=== PATIENT | female | born 1975 | race Caucasian/White ===

== ENCOUNTER 2016-10-31 17:16 | Inpatient (IN) | payer BC, OTHER ==
[~2016-10-31] VITALS: Ht 157.5 cm; Wt 70.5 kg
--- NOTE | ~2016-10-31 | CON ---
PATIENT'S NAME: JATINDER ELLER [facility] AGE: 41 Y [address] ROOM: [place] [address] LOCATION: GICU ADMIT DATE: 10/31/2016 Consultation DISCHARGE DATE: 11/01/2016 FAMILY PHYSICIAN: , Unknown ATTENDING PHYSICIAN: Edilberto Hong DATE OF CONSULTATION: 10/31/2016 REASON FOR CONSULTATION: Medical management while in intensive care unit. HISTORY OF PRESENT ILLNESS: Ms. Eller is a 41-year-old female, who was not heard from since , the week before her presentation. While on a well-person's check was found to be unresponsive in her apartment earlier today. She was transferred to the [facility], where she was stabilized and then intubated electively for airway protection and sent by air to [facility] for more definitive care. PAST MEDICAL HISTORY: Unknown. ALLERGIES: UNKNOWN. MEDICATIONS: Unknown. SOCIAL HISTORY: Unknown. FAMILY HISTORY: Unknown. REVIEW OF SYSTEMS: Unknown. PHYSICAL EXAMINATION: GENERAL: The patient was intubated and sedated and not following commands at this time. VITAL SIGNS: The patient's temperature is 99.5, her pulse rate is 77, blood pressure 117/73, and saturating 100% on 40% FiO2. NEUROLOGIC: The patient's pupils are equally round and reactive to light. HEART: Regular rate and rhythm. No murmurs, gallops, or rubs noted on exam. CHEST: Clear to auscultation bilaterally. No wheezes, rhonchi or rales. PATIENT'S NAME: JATINDER ELLER [facility] AGE: 41 Y [address] ROOM: [place] [address] LOCATION: GICU ADMIT DATE: 10/31/2016 Consultation DISCHARGE DATE: 11/01/2016 FAMILY PHYSICIAN: Physician, Unknown ATTENDING PHYSICIAN: Edilberto Hong ABDOMEN: Soft, nontender, and nondistended. She does have positive bowel sounds. HEENT: Head appears to be normocephalic, atraumatic. Ears: TMs bilaterally noted. Uvula midline. NECK: Supple. EXTREMITIES: No signs of clubbing or cyanosis. She does have some bruising noted on her right side of her body as well as the right upper breast. No other signs of clubbing, cyanosis, or edema are noted. DIAGNOSTIC STUDIES: Chest x-ray shows essentially normal-appearing chest x-ray. MRI shows acute large left [employer] distribution infarct with associated edema and mass effect. No associated hemorrhage was noted. CTA of the head shows large saddle embolus involving the main and central pulmonary arteries. Extensive thrombus of the distal left common carotid artery encompassing the entire left internal carotid artery with conclusions in portions of the left ICA extending suprasellar. Large subacute infarct with associated mass effect with a left [employer]IST-type distribution. ASSESSMENT: This is a 41-year-old female with: 1. Acute respiratory failure. 2. 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 3. Large saddle pulmonary artery thrombus with no associated hemodynamic instability or oxygenation issues at this time. 4. A large common carotid artery thrombus that extends from the common carotid all the way up into the left internal carotid artery suprasellarly and into the . PLAN: At this time, we will place the patient on some heparin and also consultation with Neurosurgery to discuss the case of the patient. Given the patient's presentation and our inability to endovascularly intervene in this patient, likely the patient will be transferred to the [facility] for more definitive care there. I spent total of 60 minutes of time with this patient's critical care time with this patient including coordinating care as well as transfer of the patient. EDILBERTO HONG MD PATIENT'S NAME: JATINDER ELLER [facility] AGE: 41 Y [address] ROOM: [address] [address] LOCATION: GICU ADMIT DATE: 10/31/2016 Consultation DISCHARGE DATE: 11/01/2016 FAMILY PHYSICIAN: Physician, Unknown ATTENDING PHYSICIAN: Edilberto Hong/karlene /[id number] d: 11/04/16 2137 t: 05/25/17 1411, CONSULTATION REPORT
--- NOTE | ~2016-10-31 | CON ---
PATIENT'S NAME: JATINDER ELLER [facility] AGE: 41 Y [address] ROOM: [place] [address] LOCATION: [facility] ADMIT DATE: 10/31/2016 Consultation DISCHARGE DATE: FAMILY PHYSICIAN: , UNKNOWN ATTENDING PHYSICIAN: YAZMIN HONG DATE OF CONSULTATION: 10/31/2016 CHIEF COMPLAINT: Unresponsiveness, complete left posterior cerebral artery stroke, saddle pulmonary embolus. HISTORY OF PRESENT ILLNESS: The patient is a 41-year-old female patient, who was found unresponsive in her apartment earlier today. She was transferred to [facility], where she was investigated and stabilized. She was found to have reduced level of consciousness for which she was intubated for airway protection. She had a noncontrast CT head and that showed evidence of complete large left posterior cerebral artery stroke. She also had chest CT scan with contrast and that showed evidence of large saddle pulmonary embolus. I was contacted and reviewed the images. I recommended starting the patient on low-dose heparin given the large pulmonary embolus. I also recommended controlling the blood pressure and transferring the patient over for further investigations and management. I saw the patient in the intensive care unit. She was intubated and partially sedated. The rest of the history is very limited due to the unavailability of family. PAST MEDICAL AND SURGICAL HISTORY: Unobtainable given the patient's level of consciousness and unavailability of family. ALLERGIES: UNKNOWN. SOCIAL HISTORY: Unobtainable given the patient's level of consciousness. FAMILY HISTORY: Unobtainable given the patient's level of consciousness. REVIEW OF SYSTEMS: Unobtainable given the patient's level of consciousness. PATIENT'S NAME: JATINDER ELLER [facility] AGE: 41 Y [address] ROOM: [place] [address] LOCATION: [facility] ADMIT DATE: 10/31/2016 Consultation DISCHARGE DATE: FAMILY PHYSICIAN: PHYSICIAN, UNKNOWN ATTENDING PHYSICIAN: YAZMIN HONG PHYSICAL EXAMINATION: GENERAL: The patient was intubated and ventilated. VITAL SIGNS: The patient was afebrile. Systolic blood pressure was less than 150. HEAD: No obvious signs of external head trauma. The pupils were 3 mm and reactive. The sclera examination was normal. NEUROLOGIC: The patient was partially sedated. She had partial eye opening, which is spontaneous. Her pupils were 3 mm and reactive. Her eyes were deviated to the left. There was no blinking to visual threat from the right side but positive blinking to visual threat from the left side. The patient was obeying on her left upper and lower extremities. She had right hemiparesis involving the right upper and lower extremities. She also had clonus on the right side. RESPIRATORY: The patient was intubated and ventilated. CARDIOVASCULAR: She has strong pulses on the upper and lower extremities. GAIT: Not done. LYMPHATIC: No cervical lymphadenopathy. SKIN: She has minimal abrasions on the anterior aspect of the knees. INVESTIGATIONS: 1. Noncontrast CT head done in [facility], which I personally reviewed. It showed evidence of complete left posterior cerebral artery stroke with radiographic stroke age probably more than 24 hours. It showed evidence of mild left to right midline shift. The basal cisterns and the left sylvian fissure were patent. No evidence of hydrocephalus. No evidence of hemorrhagic transformation in the stroke. 2. Chest CT scan with contrast, which I personally reviewed showed evidence of large saddle embolus involving the trunk of the pulmonary artery. 3. Cervical spine CT scan without contrast. It was negative for fractures or dislocations. IMPRESSION: 41-year-old female patient with unknown past medical and surgical history, found unresponsive today, has complete left posterior cerebral artery stroke and large saddle pulmonary embolus. The etiology of the stroke is unknown. Based on the radiographic findings of the head CT scan and chest CT scan, I suspect that this patient may have a patent foramen ovale that resulted in paradoxical arterial embolus that eventually resulted in the stroke. The patient does have large pulmonary embolus and she requires anticoagulation to prevent further thrombus formation, which can be life-threatening. The noncontrast CT head did not show any evidence of hemorrhagic transformation. PLAN: 1. Start low-dose intravenous heparin to manage large saddle pulmonary embolus. PATIENT'S NAME: JATINDER ELLER [facility] AGE: 41 Y [address] ROOM: [place] [address] LOCATION: [facility] ADMIT DATE: 10/31/2016 Consultation DISCHARGE DATE: FAMILY PHYSICIAN: PHYSICIAN, UNKNOWN ATTENDING PHYSICIAN: YAZMIN HONG 2. MRI brain to better assess the extent of the infarct and to assess for brainstem stroke as well. 3. CT angiogram of the head and neck to assess for dissection and other arterial embolus. 4. Hematology consultation for evaluation of hypercoagulable disorder. 5. Repeat noncontrast CT head on November 01, 2016 to assess for hemorrhagic transformation while on intravenous heparin. 6. Keep the systolic blood pressure less than 150. 7. At this point, there is no indication for ICP monitoring or decompressive craniectomy. The patient's neurological examination is reassuring as she follows commands on the right upper and lower extremities. If down the line the patient's neurological examination changes, then repeat imaging will be obtained and she may require intracranial pressure monitoring and possible decompressive craniectomy. I discussed the plan and recommendations with admitting physician. At this point, family are unavailable. We will update the family about her condition. It was pleasure taking care of this patient and thanks for having us involved. MD OPAL BARTON/georgil /[id number] CC: MD Carlos Washington MD d: 10/31/16 2320 t: 11/01/16 1243, CONSULTATION REPORT
[2016-10-31 18:14] LABS: ANION GAP 11.6 (10.0-19.0); BLOOD UREA NITROGEN 11 mg/dL (6-24); CALCIUM 7.5 mg/dL (8.5-10.5); CHLORIDE 111 mMol/L (96-110); CO2 24 mMol/L (22-32); CREATININE 0.6 mg/dL (0.5-1.1); ESTIMATED GFR (MDRD EQUATION) > 60; POTASSIUM 3.6 mMol/L (3.7-5.1); SODIUM 143 mMol/L (135-145)
[2016-10-31 19:06] LABS: BASOPHIL % 0.1 %; HEMATOCRIT 26.9 % (33.0-46.0); IMMATURE GRANULOCYTE # 0.1 K/uL (0.0-0.3); IMMATURE GRANULOCYTE % 0.5 %; LYMPHOCYTE # 1.2 K/uL (0.8-4.0); MCH 19.7 pg (27.0-34.0); MCV 68.1 fl (83.0-98.0); MONOCYTE # 0.9 K/uL (0.0-1.0); MONOCYTE % 5.1 %; MPV 10.2 fl (9.4-12.4); NEUTROPHIL # (ANC) 15.3 K/uL (1.8-7.8); NEUTROPHIL % 87.3 %; NRBC % 0 /100WBC (0-0.00); PLATELET COUNT 291 K/uL (150-450); RBC 3.95 M/uL (3.50-5.50); RDW-CV 18.1 % (11.9-14.6)
[2016-10-31 19:09] LABS: HEMOGLOBIN 7.8 g/dL (10.0-15.0); WBC 17.5 K/uL (4.0-11.0)
[2016-10-31 19:16] LABS: INR - (THERAPEUTIC) 0.96 (0.92-1.07); PROTIME 10.1 SECONDS (9.8-11.4)
[2016-10-31 19:50] LABS: ALBUMIN 2.7 gm/dL (3.5-5.0); ALK PHOS 92 IU/L (33-138); ALT 78 IU/L (12-78); ANION GAP 12.5 (10.0-19.0); AST 91 IU/L (10-40); BLOOD UREA NITROGEN 11 mg/dL (6-24); CALCIUM 7.5 mg/dL (8.5-10.5); CHLORIDE 111 mMol/L (96-110); CO2 23 mMol/L (22-32); CREATININE 0.6 mg/dL (0.5-1.1); ESTIMATED GFR (MDRD EQUATION) > 60; MAGNESIUM 2.3 mg/dL (1.8-2.6); POTASSIUM 3.5 mMol/L (3.7-5.1); SODIUM 143 mMol/L (135-145); TOTAL BILIRUBIN 0.3 mg/dL (0.0-1.5); TOTAL PROTEIN 6.8 g/dL (6.0-8.4)
[2016-10-31 19:59] LABS: CPK 2501 IU/L (21-215); PHOSPHORUS 1.9 mg/dL (2.5-4.9)
== END 2016-11-01 00:35 | disposition hospice, home (50) | DRG 208 ==
LOC: GICU 17:16
PROVIDERS: Neurological Surgery; ADMIT Anesthesiology Critical Care Medicine
PROC: 5A1935Z Respiratory Ventilation, Less than 24 Consecutive Hours (ICD-10-PCS; principal; 2016-10-31)
DX: I26.92 Saddle embolus of pulmonary artery without acute cor pulmonale (principal); J96.00 Acute respiratory failure, unspecified whether with hypoxia or hypercapnia; I63.532 Cerebral infarction due to unspecified occlusion or stenosis of left posterior cerebral artery; G81.91 Hemiplegia, unspecified affecting right dominant side; R25.8 Other abnormal involuntary movements; Z78.1 Physical restraint status
CPT/HCPCS: Q9967